=== PATIENT | female | born 1985 | race African-American/Black ===

== ENCOUNTER 2023-03-07 10:29 | Emergency (ER) | payer SELFPAY ==
[~2023-03-07] VITALS: Ht 170.2 cm; Wt 82.0 kg
[2023-03-07] MEDS ORDERED: TOPUD PO (10:53)
[2023-03-07] MEDS ORDERED: AMOX1TAB16 PO (10:53)
[2023-03-07] MEDS ORDERED: DEXAMETHASONE 4MG/ML 1ML VIAL IM ONE (11:00)
[2023-03-07] MEDS ORDERED: KETOROLAC 60MG/2ML VIAL IM ONE (11:00)
[2023-03-07 11:32] VITALS: BP 149/89
== END 2023-03-07 11:32 ==
LOC: ER 10:29
DX: J36 Peritonsillar abscess (principal)
CPT/HCPCS: 96372; 99284; J1100; J1885; Z7610

== ENCOUNTER 2023-05-18 19:27 | Emergency (ER) | payer MEDICAID ==
[~2023-05-18] VITALS: Ht 167.6 cm; Wt 76.1 kg
[~2023-05-18 19:27] MED LIST: AMOX1TAB16 PO; TOPUD PO
[2023-05-18 19:44] VITALS: BP 160/72; O2SAT 100
[2023-05-18 21:59] LABS: CLARITY URINE CLEAR (CLEAR); COLOR URINE YELLOW (YELLOW); GLUCOSE URINE NEGATIVE (NEGATIVE); KETONES URINE NEGATIVE (NEGATIVE); LEUKOCYTE ESTERASE URINE NEGATIVE (NEGATIVE); NITRITE URINE NEGATIVE (NEGATIVE); OCCULT BLOOD URINE NEGATIVE (NEGATIVE); PH URINE 5.5 (4.5-8.0); PROTEIN URINE NEGATIVE (NEGATIVE); SPECIFIC GRAVITY URINE 1.031 (1.005-1.030)
[2023-05-18] MEDS ORDERED: CEFTRIAXONE SODIUM 1 G/VIAL IM ONE (22:15)
[2023-05-18] MEDS ORDERED: DOXY100C5 MT (22:15)
[2023-05-18 22:31] VITALS: PULSE 88; RESP 18; TEMP 98.8
[2023-05-21 04:10] LABS: CHLAMYDIA TRACHOMATIS NAA Negative (Negative); NEISSERIA GONORRHOEAE NAA Negative (Negative)
== END 2023-05-18 22:30 | disposition home or self-care (01) ==
LOC: ER 19:27
DX: N95.2 Postmenopausal atrophic vaginitis (principal)
CPT/HCPCS: 87491; 87591; 81003; 81025; 96372; 99283; J0696; Z7610 ×2

== ENCOUNTER 2023-10-19 19:57 | Emergency (ER) | payer MEDICAID ==
[~2023-10-19] VITALS: Ht 170.2 cm; Wt 68.0 kg
[~2023-10-19 19:57] MED LIST changes: +DOXY100C5 MT
[2023-10-19 20:11] VITALS: BP 124/98; PULSE 109; RESP 16; TEMP 98.9; O2SAT 98
[2023-10-19] MEDS ORDERED: IBUPROFEN 600MG TABLET PO ONE (20:30)
[2023-10-19] MEDS ORDERED: PEN G BENZ/PEN G PROCAINE CR 1.2 MMU/2 ML IM ONE ×2 (21:15→22:00)
[2023-10-19] MEDS ORDERED: IBUP-2029 MT (21:33)
[2023-10-19] MEDS ORDERED: PENICILLIN G BENZATHINE 1,200,000 UNITS/2ML SYR IM ONE (22:00)
[2023-10-20] MEDS ORDERED: TOPUD PO (08:53)
[2023-10-20] MEDS ORDERED: AMOX1TAB16 PO (09:09)
== END 2023-10-19 22:05 | disposition home or self-care (01) ==
LOC: ER 19:57
DX: J02.0 Streptococcal pharyngitis (principal)
CPT/HCPCS: 99284; 87430; 70360; 96372; J0558; J0561

== ENCOUNTER 2023-10-20 05:46 | Emergency (ER) | payer MEDICAID ==
[~2023-10-20] VITALS: Ht 165.1 cm; Wt 70.0 kg
[~2023-10-20 05:46] MED LIST changes: +IBUP-2029 MT
[2023-10-20 05:51] VITALS: BP 144/88; PULSE 86; RESP 16; TEMP 98.2; O2SAT 98
[2023-10-20] MEDS ORDERED: KETOROLAC 30MG/ML VIAL IV STA (06:10)
[2023-10-20] MEDS ORDERED: DEXAMETHASONE 4MG/ML 1ML VIAL IV ONE (06:15)
[2023-10-20] MEDS ORDERED: SODIUM CHLORIDE 0.9% 1,000 ML IV ONE (06:15)
[2023-10-20] MEDS ORDERED: TOPUD PO (08:53)
[2023-10-20] MEDS ORDERED: AMOX1TAB16 PO (09:09)
== END 2023-10-20 09:31 | disposition home or self-care (01) ==
LOC: ER 05:46
DX: J02.9 Acute pharyngitis, unspecified (principal)
CPT/HCPCS: 99283; J7030; Z7610

== ENCOUNTER 2024-03-15 17:11 | Emergency (ER) | payer MEDICAID ==
[~2024-03-15] VITALS: Ht 165.1 cm; Wt 77.0 kg
[2024-03-15 17:42] VITALS: BP 175/98; PULSE 101; RESP 12; O2SAT 100
[2024-03-15] MEDS ORDERED: AMOX500T2 MT (20:06)
[2024-03-15] MEDS ORDERED: TOPUD MT (20:06)
[2024-03-15 20:15] VITALS: TEMP 98
[2024-03-15] MEDS: ACETAMINOPHEN 325MG TABLET PO ONE (20:15)
== END 2024-03-15 20:30 | disposition home or self-care (01) ==
LOC: ER 17:11
DX: K04.7 Periapical abscess without sinus (principal)
CPT/HCPCS: 99283

== ENCOUNTER 2024-08-05 04:58 | Emergency (ER) | payer MEDICAID ==
[~2024-08-05] VITALS: Ht 165.1 cm; Wt 82.5 kg
[~2024-08-05 04:58] MED LIST changes: +AMOX500T2 MT; +TOPUD MT
[2024-08-05 05:02] VITALS: O2SAT 99
[2024-08-05 05:39] VITALS: BP 149/83; PULSE 109; RESP 19; TEMP 36.61404; O2SAT 100
[2024-08-05] MEDS ORDERED: NAPR-681 MT (05:52)
[2024-08-05] MEDS ORDERED: SULF1TAB48 MT (05:52)
== END 2024-08-05 06:44 | disposition home or self-care (01) ==
LOC: ER 04:58
DX: L03.116 Cellulitis of left lower limb (principal); Z98.890 Other specified postprocedural states; Z79.899 Other long term (current) drug therapy
CPT/HCPCS: 99283

== ENCOUNTER 2025-01-28 16:26 | Emergency (ER) | payer MEDICAID ==
[~2025-01-28] VITALS: Ht 165.1 cm; Wt 77.0 kg
[~2025-01-28 16:26] MED LIST changes: +NAPR-681 MT; +SULF1TAB48 MT
[2025-01-28 16:51] VITALS: O2SAT 99
[2025-01-28] MEDS ORDERED: KETOROLAC 30MG/ML VIAL IV STA (18:32)
[2025-01-28] MEDS ORDERED: DEXAMETHASONE 10 MG/ML VIAL IV ONE (18:45)
[2025-01-28] MEDS ORDERED: CEFTRIAXONE 2GM/50ML 50 ML IV ONE (18:45)
[2025-01-28 19:10] LABS: HEMATOCRIT. 28.2 % (36.0-48.0); HEMOGLOBIN. 8.6 g/dL (12.0-16.0); MEAN CORPUSCULAR HEMOGLOBIN 19.4 pg (28.0-32.0); MEAN CORPUSCULAR HGB CONC 30.4 g/dL (31.0-37.0); MEAN CORPUSCULAR VOLUME 63.9 fL (81.0-99.0); MEAN PLATELET VOLUME 7.8 fl (7.4-10.4); PLATELET 408 x1000/uL (130-400); RED BLOOD CELL COUNT 4.42 mill/uL (4.2-5.4); RED CELL DISTRIBUTION WIDTH 16.4 % (11.6-14.6); WHITE BLOOD COUNT 9.7 x1000/uL (4.5-11.0)
[2025-01-28 19:11] LABS: DIFFERENTIAL COMMENT 1
[2025-01-28 19:18] LABS: CHLORIDE 103 mEq/L (98-107); SODIUM 136 mEq/L (136-145)
[2025-01-28 19:19] LABS: CALCIUM 8.4 mg/dL (8.7-10.4); CARBON DIOXIDE 26 mEq/L (21-32)
[2025-01-28 19:24] LABS: CREATININE 0.4 mg/dL (0.6-1.0); GLUCOSE 79 mg/dL (70-105); UREA NITROGEN BLOOD 7 mg/dL (9-23)
[2025-01-28 20:07] LABS: PLATELET ESTIMATE INCREASED
[2025-01-28 20:08] LABS: HYPOCHROMASIA 2+; MICROCYTOSIS 3+
[2025-01-28 20:09] LABS: ANISOCYTOSIS 1+
[2025-01-28] MEDS: SODIUM CHLORIDE 0.9% 1,000 ML IV ONE (21:00)
[2025-01-28] MEDS: DEXAMETHASONE 10 MG/ML VIAL IV NR (21:17)
[2025-01-28] MEDS: POTASSIUM BICARB/CIT ACID 25 MEQ TABLET.EFF PO ONE (21:30)
[2025-01-28] MEDS: CEFTRIAXONE 2GM/50ML 50 ML IV NR (22:08)
[2025-01-28] MEDS: KETOROLAC 30MG/ML VIAL IV NR (22:08)
[2025-01-28] MEDS ORDERED: CLIN-194 MT (22:16)
[2025-01-28] MEDS ORDERED: IBUP-2030 MT (22:16)
[2025-01-28] MEDS: ACETAMINOPHEN 1000MG/100ML 100 ML IV ONE (22:27)
[2025-01-29 00:05] VITALS: BP 162/93; PULSE 96; RESP 18; O2SAT 97
== END 2025-01-29 00:06 | disposition home or self-care (01) ==
LOC: ER 16:39
DX: J36 Peritonsillar abscess (principal); Z79.1 Long term (current) use of non-steroidal anti-inflammatories (NSAID)
CPT/HCPCS: 80048; 85025; 36415; 96367; 96361; 96365; 96375; 99284; J0696; J1100; J1885; J7030; Z7610; J0131